=== PATIENT | male | born 1965 | race African-American/Black ===

== ENCOUNTER 2022-10-03 18:45 | Inpatient (IN) | payer OTHER ==
[2022-10-03 20:03] VITALS: BMI 43.7
[2022-10-03] MEDS ORDERED: MELATONIN 5 MG TABLETS PO SCH (22:00)
[2022-10-03] MEDS ORDERED: IBUPROFEN 600 MG TABLET (FP) PO PRN (22:54)
[2022-10-03] MEDS ORDERED: MAGNESIUM HYDROX 2400MG/30ML ORAL SUSPENSION 30 ML CUP PO PRN (22:54)
[2022-10-03] MEDS ORDERED: ACETAMINOPHEN 325 MG TABLET (FP) PO PRN (22:54)
[2022-10-03] MEDS ORDERED: IBUPROFEN 400 MG TABLET (FP) PO PRN (22:54)
[2022-10-03] MEDS ORDERED: LOPERAMIDE HCL 2 MG CAPSULE PO PRN (22:54)
[2022-10-03] MEDS ORDERED: MAG HYDROX/AL HYDROX/SIMETH 30 ML UNIT-DOSE CUP PO PRN (22:54)
[2022-10-03] MEDS ORDERED: POLYETHYLENE GLYCOL (HEALTHYLAX) 3350 17 GM PACKET PO PRN (22:54)
[2022-10-03] MEDS ORDERED: hydrOXYzine PAMOATE 25 MG CAPSULE (FP) PO PRN (22:54)
[2022-10-03] MEDS ORDERED: P-EPHED 60MG/TRIPROLIDI 2.5MG TABLET PO PRN (22:54)
[2022-10-03] MEDS ORDERED: COLLOIDAL OATMEAL 1 BAR EACH TP PRN (22:54)
[2022-10-03] MEDS ORDERED: BENZONATATE 200 MG CAPSULE PO PRN (22:54)
[2022-10-03] MEDS ORDERED: AMMONIUM LACTATE 12% LOTION 225 GM BOTTLE TP PRN (22:54)
[2022-10-04] MEDS: AMOXICILLIN 500 MG CAPSULE (FP) PO SCH ×3 (03:06→21:30)
[2022-10-04] MEDS: LIDOCAINE PATCH REMOVAL MC SCH ×2 (03:06→21:30)
[2022-10-04] MEDS: guaiFENesin 600 MG TABLET.ER (FP) PO PRN ×3 (03:29→21:33)
[2022-10-04] MEDS: LIDOCAINE 5% TOPICAL PATCH TP SCH (10:11)
[2022-10-04] MEDS: PRENATAL VITAMINS W/ FOLIC ACID TABLET (FP) PO SCH (10:12)
[2022-10-04 11:40] LABS: PH,URINE 6.5 (5.0-8.0); URINE APPEARANCE CLEAR; URINE BILIRUBIN NEGATIVE (NEGATIVE); URINE COLOR YELLOW; URINE GLUCOSE (UA) NEGATIVE (NEGATIVE); URINE KETONE NEGATIVE (NEGATIVE); URINE LEUK ESTERASE NEGATIVE (NEGATIVE); URINE NITRITE NEGATIVE (NEGATIVE); URINE PROTEIN NEGATIVE (NEGATIVE); URINE UROBILINOGEN 0.2 mg/dL (0.2-1.0)
[2022-10-04 14:57] LABS: HEMATOCRIT 45.8 % (35.4-49); HEMOGLOBIN 14.7 GM/dL (11.7-16.9); MCH 29.6 pg (25.7-33.7); MCHC 32.2 g/dl (32.0-35.9); MEAN CELL VOLUME 92.2 fl (80-96); MEAN PLT VOLUME 8.7 fl (7.5-11.1); PLATELET COUNT 269 10^3/uL (134-434); RBC 4.96 M/mm3 (4.00-5.60); RDW 15.2 % (11.9-15.9); WHITE BLOOD COUNT 8.8 K/mm3 (4.0-10.0)
[2022-10-04 15:07] LABS: POTASSIUM 4.4 mmol/L (3.5-5.1)
[2022-10-04 15:11] LABS: ALBUMIN 3.9 g/dl (3.4-5.0); CALCIUM 9.7 mg/dL (8.5-10.1)
[2022-10-04 15:15] LABS: CREATININE 1.7 mg/dL (0.55-1.3)
[2022-10-04 15:16] LABS: BILIRUBIN,TOTAL 0.3 mg/dL (0.2-1); TOT PROT 7.7 g/dl (6.4-8.2)
[2022-10-04 15:30] LABS: SYPHILIS W/ RPR CONF NON-REACTIVE (NONREACTIVE)
[2022-10-04 15:59] LABS: HIV INTERPRETATION NEGATIVE (NEGATIVE)
[2022-10-04] MEDS: THIAMINE HCL 100 MG TABLET (FP) PO SCH (21:30)
[2022-10-04] MEDS: QUEtiapine FUMARATE 300 MG TABLET PO SCH (21:31)
[2022-10-04] MEDS: traZODone HCL 100 MG TABLET (FP) PO SCH (21:31)
[2022-10-04] MEDS ORDERED: QUEtiapine FUMARATE 100 MG TABLET (FP) ONE (21:31)
[2022-10-05] MEDS: AMOXICILLIN 500 MG CAPSULE (FP) PO SCH ×2 (10:24→21:29)
[2022-10-05] MEDS: PRENATAL VITAMINS W/ FOLIC ACID TABLET (FP) PO SCH (10:24)
[2022-10-05] MEDS: LIDOCAINE 5% TOPICAL PATCH TP SCH (10:25)
[2022-10-05] MEDS: guaiFENesin 600 MG TABLET.ER (FP) PO PRN ×2 (13:35→21:29)
[2022-10-05] MEDS ORDERED: QUEtiapine FUMARATE 100 MG TABLET (FP) ONE (18:07)
[2022-10-05] MEDS: THIAMINE HCL 100 MG TABLET (FP) PO SCH (21:28)
[2022-10-05] MEDS: LIDOCAINE PATCH REMOVAL MC SCH (21:29)
[2022-10-05] MEDS: traZODone HCL 100 MG TABLET (FP) PO SCH (21:29)
[2022-10-05] MEDS: QUEtiapine FUMARATE 300 MG TABLET PO SCH (21:30)
[2022-10-06] MEDS: PRENATAL VITAMINS W/ FOLIC ACID TABLET (FP) PO SCH (10:06)
[2022-10-06] MEDS: AMOXICILLIN 500 MG CAPSULE (FP) PO SCH ×2 (10:06→21:24)
[2022-10-06] MEDS: BENZOCAINE/MENTHOL (CHLORASEPTIC ) LOZENGE MM PRN (10:09)
[2022-10-06] MEDS: LIDOCAINE 5% TOPICAL PATCH TP SCH (10:10)
[2022-10-06] MEDS: guaiFENesin 600 MG TABLET.ER (FP) PO SCH ×2 (12:03→21:24)
[2022-10-06] MEDS ORDERED: QUEtiapine FUMARATE 100 MG TABLET (FP) ONE (18:52)
[2022-10-06] MEDS: THIAMINE HCL 100 MG TABLET (FP) PO SCH (21:23)
[2022-10-06] MEDS: QUEtiapine FUMARATE 300 MG TABLET PO SCH (21:24)
[2022-10-06] MEDS: LIDOCAINE PATCH REMOVAL MC SCH (21:24)
[2022-10-06] MEDS: traZODone HCL 100 MG TABLET (FP) PO SCH (21:24)
[2022-10-07] MEDS ORDERED: LIDOCAINE 5% TOPICAL PATCH TP PRN ×2 (08:42→10:37)
[2022-10-07] MEDS: AMOXICILLIN 500 MG CAPSULE (FP) PO SCH ×2 (09:50→21:20)
[2022-10-07] MEDS: guaiFENesin 600 MG TABLET.ER (FP) PO SCH ×2 (09:50→21:21)
[2022-10-07] MEDS: PRENATAL VITAMINS W/ FOLIC ACID TABLET (FP) PO SCH (09:50)
[2022-10-07] MEDS: BENZOCAINE/MENTHOL (CHLORASEPTIC ) LOZENGE MM PRN (09:51)
[2022-10-07] MEDS: CARBAMIDE PEROXIDE 6.5% OTIC 15 ML BOTTLE AS SCH ×2 (12:19→21:21)
[2022-10-07] MEDS ORDERED: QUEtiapine FUMARATE 100 MG TABLET (FP) ONE (18:08)
[2022-10-07] MEDS: THIAMINE HCL 100 MG TABLET (FP) PO SCH (21:20)
[2022-10-07] MEDS: traZODone HCL 100 MG TABLET (FP) PO SCH (21:21)
[2022-10-07] MEDS: LIDOCAINE PATCH REMOVAL MC SCH (21:21)
[2022-10-07] MEDS: QUEtiapine FUMARATE 300 MG TABLET PO SCH (21:22)
[2022-10-08] MEDS: AMOXICILLIN 500 MG CAPSULE (FP) PO SCH ×2 (10:10→21:19)
[2022-10-08] MEDS: CARBAMIDE PEROXIDE 6.5% OTIC 15 ML BOTTLE AS SCH ×2 (10:10→21:19)
[2022-10-08] MEDS: PRENATAL VITAMINS W/ FOLIC ACID TABLET (FP) PO SCH (10:10)
[2022-10-08] MEDS: guaiFENesin 600 MG TABLET.ER (FP) PO SCH ×2 (10:10→21:19)
[2022-10-08] MEDS ORDERED: QUEtiapine FUMARATE 100 MG TABLET (FP) ONE (19:14)
[2022-10-08] MEDS: THIAMINE HCL 100 MG TABLET (FP) PO SCH (21:19)
[2022-10-08] MEDS: LIDOCAINE PATCH REMOVAL MC SCH (21:19)
[2022-10-08] MEDS: traZODone HCL 100 MG TABLET (FP) PO SCH (21:19)
[2022-10-08] MEDS: QUEtiapine FUMARATE 300 MG TABLET PO SCH (21:19)
[2022-10-09] MEDS: CARBAMIDE PEROXIDE 6.5% OTIC 15 ML BOTTLE AS SCH ×2 (10:00→21:32)
[2022-10-09] MEDS: AMOXICILLIN 500 MG CAPSULE (FP) PO SCH ×2 (10:00→21:30)
[2022-10-09] MEDS: guaiFENesin 600 MG TABLET.ER (FP) PO SCH ×2 (10:00→21:30)
[2022-10-09] MEDS: PRENATAL VITAMINS W/ FOLIC ACID TABLET (FP) PO SCH (10:00)
[2022-10-09] MEDS ORDERED: QUEtiapine FUMARATE 100 MG TABLET (FP) ONE (19:00)
[2022-10-09] MEDS: THIAMINE HCL 100 MG TABLET (FP) PO SCH (21:30)
[2022-10-09] MEDS: QUEtiapine FUMARATE 300 MG TABLET PO SCH (21:30)
[2022-10-09] MEDS: traZODone HCL 100 MG TABLET (FP) PO SCH (21:31)
[2022-10-09] MEDS: LIDOCAINE PATCH REMOVAL MC SCH (21:32)
[2022-10-10] MEDS: guaiFENesin 600 MG TABLET.ER (FP) PO SCH ×2 (10:00→21:25)
[2022-10-10] MEDS: AMOXICILLIN 500 MG CAPSULE (FP) PO SCH (10:00)
[2022-10-10] MEDS: CARBAMIDE PEROXIDE 6.5% OTIC 15 ML BOTTLE AS SCH ×2 (10:01→21:26)
[2022-10-10] MEDS: PRENATAL VITAMINS W/ FOLIC ACID TABLET (FP) PO SCH (10:01)
[2022-10-10] MEDS ORDERED: QUEtiapine FUMARATE 100 MG TABLET (FP) ONE (18:09)
[2022-10-10] MEDS: traZODone HCL 100 MG TABLET (FP) PO SCH (21:25)
[2022-10-10] MEDS: QUEtiapine FUMARATE 300 MG TABLET PO SCH (21:25)
[2022-10-10] MEDS: THIAMINE HCL 100 MG TABLET (FP) PO SCH (21:25)
[2022-10-10] MEDS: LIDOCAINE PATCH REMOVAL MC SCH (21:26)
[2022-10-11] MEDS: guaiFENesin 600 MG TABLET.ER (FP) PO SCH (09:40)
[2022-10-11] MEDS: PRENATAL VITAMINS W/ FOLIC ACID TABLET (FP) PO SCH (09:40)
[2022-10-11] MEDS: CARBAMIDE PEROXIDE 6.5% OTIC 15 ML BOTTLE AS SCH ×2 (09:40→21:30)
[2022-10-11] MEDS: AMOXICILLIN 500 MG CAPSULE (FP) PO SCH ×2 (13:33→21:30)
[2022-10-11] MEDS: BENZOCAINE/MENTHOL (CHLORASEPTIC ) LOZENGE MM PRN ×2 (13:34→21:31)
[2022-10-11] MEDS ORDERED: QUEtiapine FUMARATE 100 MG TABLET (FP) ONE (19:18)
[2022-10-11] MEDS: traZODone HCL 100 MG TABLET (FP) PO SCH (21:30)
[2022-10-11] MEDS: THIAMINE HCL 100 MG TABLET (FP) PO SCH (21:30)
[2022-10-11] MEDS: QUEtiapine FUMARATE 300 MG TABLET PO SCH (21:30)
[2022-10-11] MEDS: LIDOCAINE PATCH REMOVAL MC SCH (21:31)
[2022-10-11] MEDS: guaiFENesin 200 MG/10 ML 10 ML UNIT-DOSE CUPS PO PRN (21:34)
[2022-10-12] MEDS: CARBAMIDE PEROXIDE 6.5% OTIC 15 ML BOTTLE AS SCH ×2 (09:37→21:33)
[2022-10-12] MEDS: AMOXICILLIN 500 MG CAPSULE (FP) PO SCH ×2 (09:37→21:28)
[2022-10-12] MEDS: PRENATAL VITAMINS W/ FOLIC ACID TABLET (FP) PO SCH (09:38)
[2022-10-12] MEDS: guaiFENesin 200 MG/10 ML 10 ML UNIT-DOSE CUPS PO PRN (09:39)
[2022-10-12] MEDS: BENZOCAINE/MENTHOL (CHLORASEPTIC ) LOZENGE MM PRN (09:39)
[2022-10-12] MEDS: THIAMINE HCL 100 MG TABLET (FP) PO SCH (21:27)
[2022-10-12] MEDS: traZODone HCL 100 MG TABLET (FP) PO SCH (21:28)
[2022-10-12] MEDS: LIDOCAINE PATCH REMOVAL MC SCH (21:28)
[2022-10-12] MEDS: QUEtiapine FUMARATE 300 MG TABLET PO SCH (21:28)
[2022-10-13] MEDS: CARBAMIDE PEROXIDE 6.5% OTIC 15 ML BOTTLE AS SCH ×2 (09:24→21:32)
[2022-10-13] MEDS: AMOXICILLIN 500 MG CAPSULE (FP) PO SCH ×2 (09:24→21:30)
[2022-10-13] MEDS: PRENATAL VITAMINS W/ FOLIC ACID TABLET (FP) PO SCH (09:24)
[2022-10-13] MEDS ORDERED: QUEtiapine FUMARATE 100 MG TABLET (FP) ONE (18:18)
[2022-10-13] MEDS: LIDOCAINE PATCH REMOVAL MC SCH (21:30)
[2022-10-13] MEDS: traZODone HCL 100 MG TABLET (FP) PO SCH (21:30)
[2022-10-13] MEDS: QUEtiapine FUMARATE 300 MG TABLET PO SCH (21:30)
[2022-10-13] MEDS: THIAMINE HCL 100 MG TABLET (FP) PO SCH (21:30)
[2022-10-13] MEDS: guaiFENesin 200 MG/10 ML 10 ML UNIT-DOSE CUPS PO PRN (21:32)
[2022-10-14] MEDS: PRENATAL VITAMINS W/ FOLIC ACID TABLET (FP) PO SCH (10:04)
[2022-10-14] MEDS: CARBAMIDE PEROXIDE 6.5% OTIC 15 ML BOTTLE AS SCH (10:04)
[2022-10-14] MEDS: AMOXICILLIN 500 MG CAPSULE (FP) PO SCH ×2 (10:04→21:16)
[2022-10-14] MEDS: THIAMINE HCL 100 MG TABLET (FP) PO SCH (21:15)
[2022-10-14] MEDS: QUEtiapine FUMARATE 300 MG TABLET PO SCH (21:16)
[2022-10-14] MEDS: LIDOCAINE PATCH REMOVAL MC SCH (21:16)
[2022-10-14] MEDS: traZODone HCL 100 MG TABLET (FP) PO SCH (21:16)
[2022-10-15 07:59] VITALS: RESP 18
[2022-10-15] MEDS: PRENATAL VITAMINS W/ FOLIC ACID TABLET (FP) PO SCH (09:42)
[2022-10-15] MEDS ORDERED: QUEtiapine FUMARATE 100 MG TABLET (FP) ONE (19:29)
[2022-10-15] MEDS: LIDOCAINE PATCH REMOVAL MC SCH (21:29)
[2022-10-15] MEDS: traZODone HCL 100 MG TABLET (FP) PO SCH (21:29)
[2022-10-15] MEDS: QUEtiapine FUMARATE 300 MG TABLET PO SCH (21:29)
[2022-10-15] MEDS: THIAMINE HCL 100 MG TABLET (FP) PO SCH (21:29)
[2022-10-16] MEDS: PRENATAL VITAMINS W/ FOLIC ACID TABLET (FP) PO SCH (09:53)
[2022-10-16] MEDS ORDERED: QUEtiapine FUMARATE 100 MG TABLET (FP) ONE (18:29)
[2022-10-16] MEDS: traZODone HCL 100 MG TABLET (FP) PO SCH (21:19)
[2022-10-16] MEDS: THIAMINE HCL 100 MG TABLET (FP) PO SCH (21:19)
[2022-10-16] MEDS: LIDOCAINE PATCH REMOVAL MC SCH (21:19)
[2022-10-16] MEDS: QUEtiapine FUMARATE 300 MG TABLET PO SCH (21:19)
[2022-10-16] MEDS: guaiFENesin 200 MG/10 ML 10 ML UNIT-DOSE CUPS PO PRN (21:21)
[2022-10-17] MEDS: PRENATAL VITAMINS W/ FOLIC ACID TABLET (FP) PO SCH (09:46)
[2022-10-17] MEDS: guaiFENesin 200 MG/10 ML 10 ML UNIT-DOSE CUPS PO PRN ×2 (09:47→21:30)
[2022-10-17 12:07] LABS: POTASSIUM 4.8 mmol/L (3.5-5.1)
[2022-10-17 12:13] LABS: CALCIUM 9.3 mg/dL (8.5-10.1)
[2022-10-17 12:14] LABS: ALBUMIN 3.7 g/dl (3.4-5.0); BLOOD UREA NITROGEN 19.2 mg/dL (7-18)
[2022-10-17 12:16] LABS: CREATININE 1.5 mg/dL (0.55-1.3)
[2022-10-17 12:18] LABS: BILIRUBIN,TOTAL 0.1 mg/dL (0.2-1); TOT PROT 7.7 g/dl (6.4-8.2)
[2022-10-17] MEDS: THIAMINE HCL 100 MG TABLET (FP) PO SCH (21:29)
[2022-10-17] MEDS: QUEtiapine FUMARATE 300 MG TABLET PO SCH (21:29)
[2022-10-17] MEDS: LIDOCAINE PATCH REMOVAL MC SCH (21:29)
[2022-10-17] MEDS: traZODone HCL 100 MG TABLET (FP) PO SCH (21:29)
[2022-10-18] MEDS: PRENATAL VITAMINS W/ FOLIC ACID TABLET (FP) PO SCH (09:37)
[2022-10-18] MEDS: guaiFENesin 200 MG/10 ML 10 ML UNIT-DOSE CUPS PO PRN (09:40)
[2022-10-18] MEDS ORDERED: QUEtiapine FUMARATE 100 MG TABLET (FP) ONE (18:41)
[2022-10-18] MEDS: QUEtiapine FUMARATE 300 MG TABLET PO SCH (21:28)
[2022-10-18] MEDS: LIDOCAINE PATCH REMOVAL MC SCH (21:28)
[2022-10-18] MEDS: traZODone HCL 100 MG TABLET (FP) PO SCH (21:28)
[2022-10-18] MEDS: THIAMINE HCL 100 MG TABLET (FP) PO SCH (21:28)
[2022-10-19] MEDS: PRENATAL VITAMINS W/ FOLIC ACID TABLET (FP) PO SCH (09:43)
[2022-10-19] MEDS: guaiFENesin 200 MG/10 ML 10 ML UNIT-DOSE CUPS PO PRN ×2 (09:44→21:25)
[2022-10-19] MEDS ORDERED: QUEtiapine FUMARATE 100 MG TABLET (FP) ONE (19:09)
[2022-10-19] MEDS: QUEtiapine FUMARATE 300 MG TABLET PO SCH (21:24)
[2022-10-19] MEDS: LIDOCAINE PATCH REMOVAL MC SCH (21:24)
[2022-10-19] MEDS: traZODone HCL 100 MG TABLET (FP) PO SCH (21:24)
[2022-10-19] MEDS: THIAMINE HCL 100 MG TABLET (FP) PO SCH (21:24)
[2022-10-20] MEDS: PRENATAL VITAMINS W/ FOLIC ACID TABLET (FP) PO SCH (10:55)
[2022-10-20] MEDS ORDERED: QUEtiapine FUMARATE 100 MG TABLET (FP) ONE (19:18)
[2022-10-20] MEDS: guaiFENesin 200 MG/10 ML 10 ML UNIT-DOSE CUPS PO PRN (21:27)
[2022-10-20] MEDS: traZODone HCL 100 MG TABLET (FP) PO SCH (21:27)
[2022-10-20] MEDS: THIAMINE HCL 100 MG TABLET (FP) PO SCH (21:27)
[2022-10-20] MEDS: LIDOCAINE PATCH REMOVAL MC SCH (21:27)
[2022-10-20] MEDS: QUEtiapine FUMARATE 300 MG TABLET PO SCH (21:27)
[2022-10-21 07:21] VITALS: TEMP 96.8
[2022-10-21] MEDS: PRENATAL VITAMINS W/ FOLIC ACID TABLET (FP) PO SCH (09:39)
[2022-10-21] MEDS: guaiFENesin 200 MG/10 ML 10 ML UNIT-DOSE CUPS PO PRN ×2 (09:40→21:17)
[2022-10-21] MEDS ORDERED: QUEtiapine FUMARATE 100 MG TABLET (FP) ONE (18:46)
[2022-10-21] MEDS: traZODone HCL 100 MG TABLET (FP) PO SCH (21:15)
[2022-10-21] MEDS: THIAMINE HCL 100 MG TABLET (FP) PO SCH (21:15)
[2022-10-21] MEDS: LIDOCAINE PATCH REMOVAL MC SCH (21:16)
[2022-10-21] MEDS: QUEtiapine FUMARATE 300 MG TABLET PO SCH (21:16)
[2022-10-22] MEDS: PRENATAL VITAMINS W/ FOLIC ACID TABLET (FP) PO SCH (10:03)
[2022-10-22] MEDS: guaiFENesin 200 MG/10 ML 10 ML UNIT-DOSE CUPS PO PRN ×2 (10:04→21:38)
[2022-10-22] MEDS ORDERED: BENZONATATE 200 MG CAPSULE PO PRN (15:47)
[2022-10-22] MEDS ORDERED: QUEtiapine FUMARATE 100 MG TABLET (FP) ONE (19:18)
[2022-10-22] MEDS: LIDOCAINE PATCH REMOVAL MC SCH (21:36)
[2022-10-22] MEDS: QUEtiapine FUMARATE 300 MG TABLET PO SCH (21:36)
[2022-10-22] MEDS: traZODone HCL 100 MG TABLET (FP) PO SCH (21:37)
[2022-10-22] MEDS: THIAMINE HCL 100 MG TABLET (FP) PO SCH (21:37)
[2022-10-22] MEDS: MONTELUKAST NA 5 MG TAB.CHEW PO SCH (21:37)
[2022-10-23] MEDS: PRENATAL VITAMINS W/ FOLIC ACID TABLET (FP) PO SCH (09:29)
[2022-10-23] MEDS: guaiFENesin 200 MG/10 ML 10 ML UNIT-DOSE CUPS PO PRN ×2 (09:30→21:30)
[2022-10-23 15:52] LABS: BASO % 0.8 % (0-2.0); EOS % 5.6 % (0-4.5); HEMATOCRIT 42.5 % (35.4-49); HEMOGLOBIN 14.4 GM/dL (11.7-16.9); LYMPH % 32.8 % (8-40); MCH 30.5 pg (25.7-33.7); MEAN CELL VOLUME 89.7 fl (80-96); MEAN PLT VOLUME 8.5 fl (7.5-11.1); NEUT % 52.8 % (42.8-82.8); PLATELET COUNT 287 10^3/uL (134-434); RBC 4.73 M/mm3 (4.00-5.60); RDW 15.3 % (11.9-15.9); WHITE BLOOD COUNT 6.2 K/mm3 (4.0-10.0)
[2022-10-23 15:53] LABS: POTASSIUM 4.6 mmol/L (3.5-5.1)
[2022-10-23 16:01] LABS: CALCIUM 9.7 mg/dL (8.5-10.1)
[2022-10-23 16:02] LABS: ALBUMIN 3.6 g/dl (3.4-5.0); BLOOD UREA NITROGEN 14.7 mg/dL (7-18)
[2022-10-23 16:05] LABS: CREATININE 1.5 mg/dL (0.55-1.3)
[2022-10-23 16:07] LABS: BILIRUBIN,TOTAL 0.4 mg/dL (0.2-1); TOT PROT 7.4 g/dl (6.4-8.2)
[2022-10-23] MEDS ORDERED: QUEtiapine FUMARATE 100 MG TABLET (FP) ONE (18:44)
[2022-10-23] MEDS: traZODone HCL 100 MG TABLET (FP) PO SCH (21:28)
[2022-10-23] MEDS: THIAMINE HCL 100 MG TABLET (FP) PO SCH (21:28)
[2022-10-23] MEDS: LIDOCAINE PATCH REMOVAL MC SCH (21:28)
[2022-10-23] MEDS: QUEtiapine FUMARATE 300 MG TABLET PO SCH (21:28)
[2022-10-23] MEDS: MONTELUKAST NA 5 MG TAB.CHEW PO SCH (21:28)
[2022-10-24 09:16] VITALS: BP 123/77; PULSE 80
[2022-10-24] MEDS: PRENATAL VITAMINS W/ FOLIC ACID TABLET (FP) PO SCH (09:19)
== END 2022-10-24 09:30 | disposition home or self-care (01) | DRG 772 ==
LOC: YASAS 18:45 → Y3E 21:49
PROVIDERS: ADMIT Allergy & Immunology; ATTEND Psychiatry & Neurology Pain Medicine
PROC: HZ42ZZZ Group Counseling for Substance Abuse Treatment, Cognitive-Behavioral (ICD-10-PCS; principal; 2022-10-03)
DX: F14.20 Cocaine dependence, uncomplicated (principal); F12.20 Cannabis dependence, uncomplicated; F17.210 Nicotine dependence, cigarettes, uncomplicated; F19.982 Other psychoactive substance use, unspecified with psychoactive substance-induced sleep disorder; F31.89 Other bipolar disorder; I10 Essential (primary) hypertension; N17.9 Acute kidney failure, unspecified; R09.89 Other specified symptoms and signs involving the circulatory and respiratory systems; M54.50 Low back pain, unspecified; G89.29 Other chronic pain; Z86.59 Personal history of other mental and behavioral disorders; Z91.013 Allergy to seafood; Z91.018 Allergy to other foods; Z56.0 Unemployment, unspecified
CPT/HCPCS: 36415; 71046-TC-FY; 80053; 81003; 85025; 85027; 86780; 86803; 87389; 87635; 87811

== ENCOUNTER 2023-06-05 14:02 | Inpatient (IN) | payer OTHER ==
[2023-06-05 15:17] VITALS: BMI 41.8
[2023-06-05] MEDS ORDERED: IBUPROFEN 400 MG TABLET (FP) PO PRN (16:15)
[2023-06-05] MEDS ORDERED: IBUPROFEN 600 MG TABLET (FP) PO PRN (16:15)
[2023-06-05] MEDS ORDERED: MAGNESIUM HYDROX 2400MG/30ML ORAL SUSPENSION 30 ML CUP PO PRN (16:15)
[2023-06-05] MEDS ORDERED: BENZONATATE 200 MG CAPSULE PO PRN (16:15)
[2023-06-05] MEDS ORDERED: BENZOCAINE/MENTHOL (CHLORASEPTIC ) LOZENGE MM PRN (16:15)
[2023-06-05] MEDS ORDERED: LOPERAMIDE HCL 2 MG CAPSULE PO PRN (16:15)
[2023-06-05] MEDS ORDERED: POLYETHYLENE GLYCOL (HEALTHYLAX) 3350 17 GM PACKET PO PRN (16:15)
[2023-06-05] MEDS ORDERED: NALOXONE HCL (KLOXXADO) 8 MG SPRAY NS PRN (16:15)
[2023-06-05] MEDS ORDERED: guaiFENesin 600 MG TABLET.ER (FP) PO PRN (16:15)
[2023-06-05] MEDS ORDERED: NALOXONE HCL 0.4 MG/ML VIAL IM PRN (16:15)
[2023-06-05] MEDS: NICOTINE 7 MG/24 HOURS TOPICAL PATCH TD SCH (19:59)
[2023-06-05] MEDS: PRENATAL VITAMINS W/ FOLIC ACID TABLET (FP) PO SCH (19:59)
[2023-06-05] MEDS: THIAMINE HCL 100 MG TABLET (FP) PO SCH (21:12)
[2023-06-05] MEDS: MELATONIN 5 MG TABLETS PO SCH (21:12)
[2023-06-05] MEDS: hydrOXYzine PAMOATE 25 MG CAPSULE (FP) PO PRN (21:13)
[2023-06-05] MEDS: TUBERCULIN PPD 5 TU/0.1ML SYRINGE (IN PATIENT USE ONLY) ID ONE (21:30)
[2023-06-06 12:25] LABS: HEMATOCRIT 42.2 % (35.4-49); HEMOGLOBIN 13.9 GM/dL (11.7-16.9); MCH 30.5 pg (25.7-33.7); MEAN CELL VOLUME 92.6 fl (80-96); MEAN PLT VOLUME 8.4 fl (7.5-11.1); PLATELET COUNT 259 10^3/uL (134-434); RBC 4.56 M/mm3 (4.00-5.60); WHITE BLOOD COUNT 7.1 K/mm3 (4.0-10.0)
[2023-06-06 12:46] LABS: POTASSIUM 3.7 mmol/L (3.5-5.1)
[2023-06-06 13:02] LABS: ALBUMIN 3.6 g/dl (3.4-5.0); BLOOD UREA NITROGEN 17.3 mg/dL (7-18)
[2023-06-06 13:05] LABS: CREATININE 1.4 mg/dL (0.55-1.3); TOT PROT 7.1 g/dl (6.4-8.2)
[2023-06-06 13:07] LABS: BILIRUBIN,TOTAL 0.3 mg/dL (0.2-1)
[2023-06-06 13:22] LABS: SYPHILIS W/ RPR CONF NON-REACTIVE (NONREACTIVE)
[2023-06-06 17:51] LABS: PH,URINE 8.5 (5.0-8.0); URINE APPEARANCE CLEAR; URINE BILIRUBIN NEGATIVE (NEGATIVE); URINE COLOR YELLOW; URINE GLUCOSE (UA) NEGATIVE (NEGATIVE); URINE KETONE TRACE (NEGATIVE); URINE LEUK ESTERASE NEGATIVE (NEGATIVE); URINE NITRITE NEGATIVE (NEGATIVE); URINE PROTEIN TRACE (NEGATIVE)
[2023-06-06] MEDS: QUETIAPINE FUMARATE PO SCH (21:06)
[2023-06-06] MEDS: traZODone HCL 100 MG TABLET (FP) PO SCH (21:07)
[2023-06-06] MEDS ORDERED: QUEtiapine FUMARATE 300 MG TABLET PO SCH (22:00)
[2023-06-10] MEDS ORDERED: NICOTINE POLACRILEX 4 MG GUM BUC PRN (11:28)
[2023-06-10] MEDS ORDERED: NICOTINE 7 MG/24 HOURS TOPICAL PATCH TD PRN (11:29)
[2023-06-10] MEDS: MAG HYDROX/AL HYDROX/SIMETH 30 ML UNIT-DOSE CUP PO PRN (21:19)
[2023-06-12] MEDS: ATORVASTATIN CA 20 MG TABLET (FP) PO SCH (10:44)
[2023-06-13] MEDS: ACETAMINOPHEN 325 MG TABLET (FP) PO PRN (09:45)
[2023-06-26 06:36] VITALS: RESP 18; TEMP 97.5
[2023-06-26 09:08] VITALS: BP 121/85; PULSE 92
== END 2023-06-27 10:40 | disposition home or self-care (01) | DRG 772 ==
LOC: YASAS 14:02 → Y3E 18:21
PROVIDERS: ADMIT Allergy & Immunology; ATTEND Psychiatry & Neurology Pain Medicine
PROC: HZ42ZZZ Group Counseling for Substance Abuse Treatment, Cognitive-Behavioral (ICD-10-PCS; principal; 2023-06-05)
DX: F10.20 Alcohol dependence, uncomplicated (principal); F14.20 Cocaine dependence, uncomplicated; F12.20 Cannabis dependence, uncomplicated; F17.210 Nicotine dependence, cigarettes, uncomplicated; F33.1 Major depressive disorder, recurrent, moderate; F19.282 Other psychoactive substance dependence with psychoactive substance-induced sleep disorder; F19.24 Other psychoactive substance dependence with psychoactive substance-induced mood disorder; E78.5 Hyperlipidemia, unspecified; I10 Essential (primary) hypertension; M54.50 Low back pain, unspecified; G89.29 Other chronic pain; R73.03 Prediabetes; Z91.51 Personal history of suicidal behavior; Z86.11 Personal history of tuberculosis
CPT/HCPCS: 36415; 71045-TC-FY; 80053; 80305; 81003; 83036; 85027; 86780; 86803; 87635; 93005; 93010